=== PATIENT | male | born 1975 | race Hispanic/Latino ===

== ENCOUNTER 2025-01-27 21:59 | Emergency (ER) | payer BC ==
[~2025-01-27] VITALS: Ht 167.6 cm; Wt 78.5 kg
--- NOTE | 2025-01-27 22:37 | ERN ---
ED Note History of Present Illness Stated Complaint: C/O FISH SPIKE IN RT INDEX FINGER Chief Complaint: Finger Injury Time Seen by MD: 22:36 Dictation: This is a 49-year-old male from [place] came in to the emergency room at [facility] for evaluation of right index finger pain and swelling. Apparently patient was fishing and sustained an injury where a fish spike got lodged into his right index finger. He stated that initially it went through and through from the palmar aspect to the opposite side but then it moved back and broke lodging the bony spike inside his index finger. He initially went to [facility] urgent care [place] they where they evaluated him and stated that they could not do anything so he came over here. He was very uncomfortable due to pain and swelling of the right index finger. The incident happened more than 12 hours ago Temperature 98.6 pulse 65 respirations 20 blood pressure 126/75 with a pulse oximetry of 97% on room air Allergies: Coded Allergies: No Known Allergies (Unverified Allergy, Unknown, 01/27/25) Past Medical History Past Medical History: Diverticulosis Surgical History: Unknown Family History: Negative RN Note Reviewed/Agreed w/PFSH: Yes Review of System Dictation Constitutional: Negative for fever,chills, and weight loss Eyes: Negative for injury, pain,redness, and discharge ENT: Negative for injury,pain or swelling Cardiovascular: Negative for chest pain, palpitations, and edema Respiratory: Negative for shortness of breath, cough, and wheezing, Abdomen/GI: Negative for abdominal pain, nausea, vomiting, diarrhea, and constipation Back: Negative for injury and pain : Negative for injury, bleeding and discharge MS/Extremity: Negative for injury and deformity right index finger pain and swelling Skin: Negative for rash, and discoloration Neuro: Negative for headache, weakness, numbness, tingling, and seizure Psych: Negative for suicide ideation, homicidal ideation, and hallucinations Initial Vital Sign VS Vital Signs Date Time Temp Pulse Resp B/P (MAP) Pulse Ox O2 Delivery O2 Flow Rate FiO2 01/27/25 22:01 98.6 65 20 126/75 97 Room Air 01/27/25 23:00 0 21 Physical Exam Dictation General: awake, alert, NAD uncomfortable from pain Head/Face: Normocephalic, atraumatic Eyes: PERRL, EOMI, vision at baseline ENT: oral cavity clear, TMs clear, no signs of infection Neck: Trachea midline, supple, no nuchal rigidity Cardiovascular: RRR, normal S1/S2, No MRGs, no JVD Respiratory: CTAB, no respiratory distress, No rales or wheezes Abdomen: Soft, non-tender, non-distended, normal bowel sounds, no guarding or rebound. Skin: Warm, dry, normal turgor, no rash MS/Extremity: Pulses equal, no cyanosis, neurovascular intact, FROM there is a tiny entrance wound on the palmar aspect and a small discoloration on the dorsal aspect of the index finger. Swelling of the right index finger and very tender to palpation but I can not feel the bony spike on palpation Neuro: COAx4, GCS 15, strength 5/5, CN 2-12 intact, normal cerebellar exam, normal gait, Psych: Normal behavior, mood, and affect normal Extremities-trace edema without any palpable cords, Homans sign is negative Results (Laboratory/Radiology) Laboratory/Radiology Laboratory Tests Test 01/28/25 01:55 White Blood Count 14.7 K/uL (4.8-10.8) H Red Blood Count 3.64 MIL/uL (4.50-6.20) L Hemoglobin 12.3 g/dL (14.0-18.0) L Hematocrit 34.1 % (42-54) L Mean Corpuscular Volume 93.7 fL (79-99) Mean Corpuscular Hemoglobin 33.8 pg (27.0-33.0) H Mean Corpuscular Hemoglobin Concent 36.1 g/dL (32.0-36.0) H Red Cell Distribution Width 13.2 % (11.0-15.5) Platelet Count 167 K/uL (130-400) Mean Platelet Volume 9.6 fL (7.5-10.5) Immature Granulocyte % (Auto) 0.4 % (0-1) Neutrophils (%) (Auto) 81.5 % (40.0-77.0) H Lymphocytes (%) (Auto) 11.7 % (21.0-51.0) L Monocytes (%) (Auto) 5.4 % (3.0-13.0) Eosinophils (%) (Auto) 0.8 % (0.0-8.0) Basophils (%) (Auto) 0.2 % (0.0-5.0) Neutrophils # (Auto) 12.0 K/uL (1.8-7.7) H Lymphocytes # (Auto) 1.7 K/uL (1.0-4.8) Monocytes # (Auto) 0.8 K/uL (0.1-1.0) Eosinophils # (Auto) 0.12 K/uL (0.00-0.70) Basophils # (Auto) 0.03 K/uL (0.00-0.20) Absolute Immature Granulocyte (auto 0.06 K/uL (0-1) Nucleated Red Blood Cells 0.0 % (0.0-0.19) Red Blood Cell Morphology See comments Prothrombin Time 11.8 SEC (9.6-11.6) H Prothromb Time International Ratio 1.13 (0.85-1.15) Activated Partial Thromboplast Time 32.2 SEC (26.3-35.5) Sodium Level 131 mmol/L (136-145) L Potassium Level 3.7 mmol/L (3.5-5.1) Chloride Level 98 mmol/L (101-111) L Carbon Dioxide Level 28 mmol/L (21-32) Blood Urea Nitrogen 10 mg/dL (7-18) Creatinine 0.9 mg/dL (0.5-1.3) Glomerular Filtration Rate Calc 105 mL/min (>90) Random Glucose 167 mg/dL (70-105) H Total Calcium 8.5 mg/dL (8.5-10.1) Labs Reviewed?: Yes ED Course ED Course Orders Procedure Category Date Status Time Hand 3+Vws Rt RAD 01/27/25 Resulted 22:05 Hydrocodone/Apap PHA 01/27/25 Complete 5/325 (Commack 5/325mg) 23:00 Tetanus,Diphtheria PHA 01/27/25 Complete Tox [Adult] (Diphther 23:00 Lidocaine Hcl 1% 20ml PHA 01/27/25 Complete Vial (Lidocaine Hc 23:27 Ketorolac PHA 01/28/25 Complete Tromethamine 30mg/Ml 00:00 Zosyn 3.375gm+Ns 50ml PHA 01/28/25 Complete (Zosyn 3.375gm+Ns 00:00 Hydromorphone 0.5mg PHA 01/28/25 Complete Syg (Dilaudid 0.5mg 01:00 Cbc With Differential LAB 01/28/25 Complete 01:25 Basic Metabolic Panel LAB 01/28/25 Complete :25 Pt And Ptt LAB 01/28/25 Complete :25 Hydromorphone 0.5mg PHA 01/28/25 Complete Syg (Dilaudid 0.5mg 02:30 Hydromorphone 0.5mg PHA 01/28/25 Complete Syg (Dilaudid 0.5mg 07:30 Npo Except Ice Chips CPOE 01/28/25 Transmitted & Meds 07:15 Current Medications Medications (Trade) Dose Ordered Sig/Emmanuel Route PRN Reason Start Time Stop Time Status Last Admin Dose Admin Acetaminophen/ Hydrocodone Bitart (NORco 5/325MG) 1 tab ONCE ONCE PO 01/27/25 23:00 01/27/25 23:01 DC 01/27/25 23:14 Hydromorphone HCl (DiLAUDid 0.5MG INJ) 0.5 mg ONCE ONCE IVP 01/28/25 01:00 01/28/25 01:01 DC 01/28/25 00:59 Hydromorphone HCl (DiLAUDid 0.5MG INJ) 0.5 mg ONCE ONCE IVP 01/28/25 02:30 01/28/25 02:31 DC 01/28/25 02:19 Hydromorphone HCl (DiLAUDid 0.5MG INJ) 0.5 mg ONCE ONCE IVP 01/28/25 07:30 01/28/25 07:32 DC 01/28/25 07:56 Ketorolac Tromethamine (toRADol) 30 mg ONCE ONCE IM 01/28/25 00:00 01/28/25 00:01 DC 01/27/25 23:57 Lidocaine HCl (Lidocaine HCl 1% 20ml Vial) 20 ml STK-MED ONCE .ROUTE 01/27/25 23:27 01/27/25 23:27 DC Piperacillin Sod/ Tazobactam Sod (Zosyn 3.375gm+NS 50ml) 3.375 gm Q12H IV 01/28/25 00:00 01/28/25 11:48 DC 01/28/25 00:55 Tetanus/ Diphtheria Toxoids Adsorbed (DiphthERIA-teTANUS TOXOID [ADULT]/ DECAVAC) 0.5 ml ONCE ONCE IM 01/27/25 23:00 01/27/25 23:01 DC 01/27/25 23:13 Vital Signs Date Time Temp Pulse Resp B/P (MAP) Pulse Ox O2 Delivery O2 Flow Rate FiO2 01/28/25 11:38 98.1 65 15 107/71 97 Room Air* 0 21 01/28/25 11:26 98.1 64 13 103/73 97 Room Air* 0 01/28/25 09:48 98.1 61 13 114/61 97 Room Air* 0 01/28/25 08:06 98.1 55 12 111/66 98 Room Air* 0 01/28/25 06:40 98.4 56 12 100/53 97 Room Air* 0 01/28/25 06:00 98.4 54 12 99/63 96 Room Air* 0 01/28/25 01:34 98.4 58 18 105/55 94 Room Air* 0 21 01/27/25 23:00 98.4 63 18 124/61 98 Room Air* 0 21 01/27/25 22:01 98.6 65 20 126/75 97 Room Air We will perform imaging and administer medications according to the patient's complaint. Once the results are available, will review and personally interpreted the labs to rule out any acute life-threatening emergency the trach require immediate intervention and treatment. I will then re-evaluate the patient after treatment and diagnostic exams have return to determine whether the patient requires any further testing, can safely be discharged home or need further admission to hospital for additional treatment and evaluation. I have reviewed the x-rays of the hand and they are definitely appears to be a linear foreign body adjacent to the index finger on the right side and there is no evidence of any fracture or dislocation of the bones. It is quite deep into the soft tissue 2340 hrs-I consulted Dr. Sanchez, orthopedic surgeon on-call and discussed extensively the patient's case and the x-rays. He stated that he is not a hand surgeon to give antibiotics and he needs removal of the foreign body. He recommended keeping the patient in the emergency room and consulting in the morning as he is not on-call tonight. Pain management, tetanus shot and empiric antibiotics given. I had a long discussion with the patient and spouse about the recommendations of orthopedic surgery. Patient and spouse stated with their from [place] they indicated that they would stay here and have Dr. Bright evaluate him in the morning for removal of the foreign body. Patient and spouse or very appreciative and thankful 6:[address] Dwight Bright about the foreign body in the patient's index finger. Dr. Bright stated that he has clinic all day today and he is going out of town tomorrow morning at 6:00 a.m. he is unable to consult on the patient at this time and recommended transfer to another hand surgeon 7Am- Discussed with Dr. Bryson Ortho surgeon - He was gracious to assist in patients care however he is operating at [facility] and [facility]. He instructed to transfer pt to [facility] so he could see and take care of the patient. Patient [place] and patient is agreeable to be transferred Medical Decision Making MDM MDM: Differential diagnosis: Foreign body in the soft tissue, injury to the bone, tendon injury, secondary infection Rationale: Tests considered and ordered secondary to shared decision making include: labs, ECG and radiology Previous outside records reviewed: Old ER visits. Risk of complication and/or morbidity or mortality of patient management: None Medications-Per medication reconciliation Need for hospitalization: Patient does meet criteria for hospitalization. Need for emergency major/minor surgery: No There are no social concerns with this patient. Prescription drug management Prescriptions will include symptomatic care Patient's prior external medical records from other ER visits were reviewed by me as indicated. Prior testing and results from previous visits were reviewed. Prior tests were taken into account with medical decision making and resource utilization, independent historian/historians were used to obtain complete medical history. I independently interpreted the test that were performed, results were reviewed by me and considered findings on radiology if ordered. Medical management and examination interpretation discussions were had by me with other qualified healthcare professionals as indicated for the patient's care. PLEASE NOTE THAT THE PATIENT WILL BE TRANSFERRED TO [facility] FOR HAND SURGERY SERVICES THAT ARE NOT AVAILABLE AT THIS FACILITY AT THIS TIME Problem List Problem List: (1) Foreign body of right index finger with infection DX & DISP Disposition: Transfer Departure Impression: Primary Impression: Foreign body of right index finger with infection Condition: Stable Additional Instructions: The patient has been informed about all the diagnostic tests and procedures carried out in the emergency room today and has confirmed understanding of the results. Patient will be transferred to a facility that provides a higher level of care since such services are not accessible locally or within our immediate community. The patient is alert oriented and not experiencing any acute distress. There are no signs of sepsis and patient's hemodynamic status is stable at the moment. Medically, the patient is considered stable for transfer Patient is being transferred to [facility] for Dr. Bryson , orthopedic surgeon consultation and addressing the patient's foreign body stuck in his index finger RIGOBERTO RAMOS NP Jan 27, 2025 22:37 EVANGELINA MARTINEZ MD Jan 28, 2025 01:04
[2025-01-27] MEDS: teTANUS/diphthERIA TOXOID [ADULT] 0.5 ML VIAL IM ONE (23:13)
[2025-01-27] MEDS: HYDROcodone/APAP 5/325 1 TAB TABLET PO ONE (23:14)
[2025-01-27] MEDS: LIDOCAINE HCL 1% 20 ML VIAL ONE (23:27)
[2025-01-27] MEDS: ketOROlac 30MG VIAL (30MG/ML) IM ONE (23:57)
[2025-01-28] MEDS: ZOSYN 3.375GM +NS 50ML IV SCH (00:50)
[2025-01-28] MEDS: hydroMORPHone 0.5 MG SYG (0.5MG/0.5ML) IVP ONE ×3 (00:59→07:56)
[2025-01-28 02:15] LABS: BASOPHILS # (AUTO) 0.03 K/uL (0.00-0.20); BASOPHILS % (AUTO) 0.2 % (0.0-5.0); EOSINOPHILS # (AUTO) 0.12 K/uL (0.00-0.70); EOSINOPHILS % (AUTO) 0.8 % (0.0-8.0); HEMATOCRIT 34.1 % (42-54); IMMATURE GRANULOCYTE ABSOLUTE 0.06 K/uL (0-1); LYMPHOCYTES # (AUTO) 1.7 K/uL (1.0-4.8); LYMPHOCYTES % (AUTO) 11.7 % (21.0-51.0); MEAN CORPUSCULAR HEMOGLOBIN 33.8 pg (27.0-33.0); MEAN CORPUSCULAR HGB CONC 36.1 g/dL (32.0-36.0); MEAN CORPUSCULAR VOLUME 93.7 fL (79-99); MONOCYTES # (AUTO) 0.8 K/uL (0.1-1.0); MONOCYTES % (AUTO) 5.4 % (3.0-13.0); NEUTROPHILS % (AUTO) 81.5 % (40.0-77.0); PLATELET COUNT (AUTO) 167 K/uL (130-400); RED BLOOD CELL COUNT(AUTO) 3.64 MIL/uL (4.50-6.20); RED CELL DISTRIBUTION WIDTH 13.2 % (11.0-15.5); WHITE BLOOD COUNT (AUTO) 14.7 K/uL (4.8-10.8)
[2025-01-28 02:29] LABS: CREATININE 0.9 mg/dL (0.5-1.3); POTASSIUM 3.7 mmol/L (3.5-5.1)
[2025-01-28 02:31] LABS: INR 1.13 (0.85-1.15); PROTHROMBIN TIME 11.8 SEC (9.6-11.6)
[2025-01-28 02:32] LABS: PARTIAL THROMBOPLASTIN TIME 32.2 SEC (26.3-35.5)
--- NOTE | 2025-01-28 08:45 | HMCIMG ---
Exam Type: HAND 3+VWS RT Clinical Information: FISH SPIKE IN FINGER Comparison: None Findings: The bone examination is unremarkable. No fractures or dislocations are seen. No radiopaque foreign bodies are noted. Soft tissues are abnormal. There are 2 foreign bodies. One shows 2 segments, overlying the soft tissues lateral to the base of the middle phalanx of the second digit, longest fragment measuring approximately 15 mm in length, second fragment near the proximal tip measuring 4 mm. The second site of foreign body abnormality involves the soft tissues near the medial aspect of the proximal phalanx of the fifth digit, measuring 4 mm. IMPRESSION: Soft tissue foreign bodies as noted.
[2025-01-28 11:38] VITALS: BP 107/71; PULSE 65; RESP 15; TEMP 98; O2SAT 97
== END 2025-01-28 11:48 | disposition short-term general hospital (02) ==
LOC: EDH 21:59
DX: S60.450A Superficial foreign body of right index finger, initial encounter (principal); L08.9 Local infection of the skin and subcutaneous tissue, unspecified; Z79.01 Long term (current) use of anticoagulants; W45.8XXA Other foreign body or object entering through skin, initial encounter; Y93.89 Activity, other specified; Y92.89 Other specified places as the place of occurrence of the external cause; Y99.8 Other external cause status
CPT/HCPCS: 99285; 80048; 85025; 85610; 85730; 36415; 90714; 73130; 96372; 90471; 96365; 96375; 96376; J1885; J2543; J1171 ×3